=== PATIENT | female | born 1960 | race Caucasian/White ===

== ENCOUNTER 2020-02-10 12:42 | Outpatient (REF) | payer MEDICARE, MEDICAID, SELFPAY | END 2020-02-10 12:43 | disposition home or self-care (01) | LOC: HO.LAB 12:42 | PROVIDERS: PCP Internal Medicine; Visit Provider Internal Medicine | DX: Z20.828 Contact with and (suspected) exposure to other viral communicable diseases (principal) | CPT/HCPCS: C9803; U0003 ==

== ENCOUNTER 2022-05-30 11:07 | Outpatient (REF) | payer MEDICARE, MEDICAID, SELFPAY ==
--- NOTE | ~2022-05-30 | XR_ITS ---
EXAMINATION: XR HIP, LEFT CLINICAL INFORMATION: Pain. COMPARISON: None available. TECHNIQUE: Two views of the left hip. FINDINGS: No acute fractures or subluxation. Mild joint space narrowing and subcortical sclerosis of both hips. SI joints are symmetric. Pubic symphysis is maintained. No abnormal soft tissue calcifications. XR/XR hip LT w [id number] IMPRESSION: 1. No acute fractures or subluxation. 2. Mild degenerative osteoarthritis of both hips.
== END 2022-05-30 11:08 | disposition home or self-care (01) ==
LOC: HO.HOSX 11:07
PROVIDERS: Visit Provider Physician Assistant
DX: S76.012A Strain of muscle, fascia and tendon of left hip, initial encounter (principal)
CPT/HCPCS: 73502; 99202